=== PATIENT | female | born 1950 | race Two or more races ===

== ENCOUNTER 2017-10-01 12:44 | Emergency (ER) | payer OTHER ==
[~2017-10-01] VITALS: Ht 162.6 cm; Wt 70.8 kg
[2017-10-01] MEDS ORDERED: B-122500 MCG (13:09)
[2017-10-01] MEDS ORDERED: CHOLESTROL (13:10)
[2017-10-01] MEDS ORDERED: [UNRECOGNIZED DRUG - OTHER] (13:10)
[2017-10-01] MEDS ORDERED: MAGNESIUM250 MG (13:11)
[2017-10-06] MEDS ORDERED: MAGNESIUM250 MG PO (10:10)
== END 2017-10-01 20:41 | disposition home or self-care (01) ==
LOC: ER 12:44
DX: S82.091A Other fracture of right patella, initial encounter for closed fracture (principal); W01.198A Fall on same level from slipping, tripping and stumbling with subsequent striking against other object, initial encounter; Y93.89 Activity, other specified; Y92.89 Other specified places as the place of occurrence of the external cause; Y99.8 Other external cause status

== ENCOUNTER 2017-10-07 06:05 | Day surgery (SDC) | payer OTHER ==
[~2017-10-07 06:05] MED LIST: B-122500 MCG; CHOLESTROL; MAGNESIUM250 MG; MAGNESIUM250 MG PO; [UNRECOGNIZED DRUG - OTHER]
[2017-10-07] MEDS ORDERED: ASA325 MG PO (09:24)
[2017-10-07] MEDS ORDERED: DUI500 PO (09:24)
[2017-10-07] MEDS ORDERED: PERCOCET 5-3251 EACH PO (09:24)
== END 2017-10-07 14:06 | disposition home or self-care (01) ==
LOC: CIR.AMB 06:05
DX: S82.031A Displaced transverse fracture of right patella, initial encounter for closed fracture (principal)

== ENCOUNTER 2020-11-20 08:33 | Emergency (ER) | payer OTHER ==
[~2020-11-20] VITALS: Ht 162.6 cm; Wt 81.2 kg
[~2020-11-20 08:33] MED LIST changes: +ASA325 MG PO; +DUI500 PO; +PERCOCET 5-3251 EACH PO
[2020-11-20] MEDS ORDERED: LOSARTAN POTAS100 MG PO (09:21)
[2020-11-20] MEDS ORDERED: METOCLOPRAMIDE10 MG PO (16:38)
[2020-11-20] MEDS ORDERED: MOTION SICKNESS25 M2 PO (16:38)
== END 2020-11-20 16:49 | disposition home or self-care (01) ==
LOC: ER 08:33
DX: H81.12 Benign paroxysmal vertigo, left ear (principal); R10.13 Epigastric pain; R11.2 Nausea with vomiting, unspecified; Z03.818 Encounter for observation for suspected exposure to other biological agents ruled out